=== PATIENT | female | born 1995 | race Caucasian/White ===

== ENCOUNTER 2021-05-26 09:59 | Emergency (ER) | payer OTHER, SELFPAY ==
[2021-05-26 10:06] VITALS: BP 145/89; PULSE 100; RESP 18; TEMP 36.1; O2SAT 98; BMI 30.7
--- NOTE | 2021-05-26 10:14 | ED_ITS ---
HPI - Skin/Abscess/Foreign Bdy General Chief complaint: General Medical Stated complaint: ingrown finger nail Time Seen by Provider: 05/26/21 10:13 Source: patient Mode of arrival: ambulatory Limitations: no limitations History of Present Illness MD complaint: abscess/boil and lesion Onset (ago): week(s) (1) Tetanus up to date: yes Location: R hand (middle finger) Severity: mild Quality: aching Pain Consistency: intermittent Relieving factors: none Exacerbating factors: palpation Context: other (hang nail tried to cut it ) Associated symptoms: other (able to express purulence at home) Treatments prior to arrival: bandages and attempted to drain pus at home Related Data Previous Rx's Medication Instructions Recorded doxycycline monohydrate 100 mg 100 mg PO BID 7 Days #14 tab 05/26/21 tablet ondansetron 4 mg disintegrating 4 mg PO Q8H PRN #20 tab 05/26/21 tablet Allergies Allergy/AdvReac Type Severity Reaction Status Date / Time Penicillins Allergy Intermediate VOMITING Unverified 01/04/20 16:17 [PENICILLINS] latex [LATEX] Allergy Mild RASH Unverified 01/04/20 16:17 amoxicillin Allergy Unknown VOMITING Unverified 01/04/20 16:17 [AMOXICILLIN] Review of Systems Verdana 4l Review of Systems: Verdana 4d Verdana 4d Constitutional : No Fever, No Chills ENT/Mouth : No sore throat, No Rhinorrhea Eyes: No Eye Pain, No Swelling, No Redness Cardiovascular : No Chest Pain, No SOB Respiratory : No Cough, No Sputum Gastrointestinal : No Nausea, No Vomiting, NoNo Diarrhea, No abdominal Pain Musculoskeletal : No joint pain, No Myalgias, No Joint Swelling Skin : No Skin Lesions, positive skin rash Neuro : No Weakness, No Numbness, No Headache PMFSH Past Medical History Attestation statement: The following information was validated with the patient. Medical History No known health problems Social History Social History (Updated 05/26/21 @ 10:38 by Melani Horan DO) Patient Tobacco Use Status: Never used Tobacco Advance Directives: No Advance Directives Information Provided: No Patient : No Physical Exam Verdana 4l Vital Signs: Verdana 4d Verdana 4d Vital Signs: Verdana 4d Verdana 4Bd Last Vital Signs Verdana 4d [employer] New 4d [employer] Engineer New 4d Temp 97 F 05/26/21 10:06 [employer] Test Engineer New 4d Pulse 100 05/26/21 10:06 [employer] Test Engineer New 4d Resp 18 05/26/21 10:06 BP 145/89 H 05/26/21 10:06 Pulse Ox 98 05/26/21 10:06 BMI result Body Mass Index 30.7 Appearance: Alert. Oriented X3. No acute distress. Eyes: Pupils equal, round and reactive to light. ENT: Pharynx normal. Neck: Normal inspection. Neck supple. CVS: Pulses normal. Respiratory: No respiratory distress. Abdomen: Soft and non-tender. Skin: Skin warm and dry. Normal skin color. Extremities: No lower extremity edema. R middle finger small red raised area at a head on lateral nail fold no extending erythema no finger swelling full ROM of finger Neuro: Oriented X 3. No motor deficit. No sensory deficit. MDM - Skin/Abscess/Foreign Bdy MDM Narrative Medical decision making narrative: 26 yo female hx of MRSA here with paronychia x 1 week trying to treat at home did express purulence at home no fevers no DM - at this time will lift nail fold and start on doxy given history no signs of extending infection, systemic symptoms or tendon involvement - stable for DC Procedures Abscess I/D Site: hand (middle finger) Side (if applicable): right Technique: needle aspiration (lifted proximal nail fold with 18B unroofed pustule) Amount of fluid expressed (mL): 1 Sent for culture/gram staining?: No Irrigation: No Packing used?: none Discharge Plan Discharge Clinical Impression: Paronychia of finger Qualifiers: Laterality: right Qualified Code(s): L03.011 - Cellulitis of right finger Patient Disposition: Home, Self-Care Instructions: Paronychia (ED) Additional Instructions: return to ED for any worsening symptoms or concerns do not soak finger it is okay to shower, no washing dishes for 5 days, monitor for worsening symptoms given penicillin allergy will use the doxycycline as antibiotic Prescriptions: New doxycycline monohydrate 100 mg tablet 100 mg PO BID 7 Days Qty: 14 0RF ondansetron 4 mg tablet,disintegrating 4 mg PO Q8H PRN (Reason: nausea and vomiting) Qty: 20 0RF Stand Alone Forms: Work/School Release
== END 2021-05-26 10:56 | disposition home or self-care (01) ==
PROVIDERS: Emergency Provider Emergency Medicine
DX: L03.011 Cellulitis of right finger (principal); M79.644 Pain in right finger(s)
CPT/HCPCS: 10060; 99283; 99284